=== PATIENT | female | born 1970 | race Caucasian/White ===

== ENCOUNTER 2018-12-02 11:29 | Emergency (ER) | payer SELFPAY ==
[~2018-12-02 11:29] MED LIST: CYCL10TA29 PO; GABA-549 PO; HYDR-317; HYDR-317 PO; LEVO-3 PO; LEVO75TA73 PO
--- NOTE | 2018-12-02 11:38 | ER Report ---
History and Physical Time Seen By MD: 11:37 HPI/ROS CHIEF COMPLAINT: Chest pain. HISTORY OF PRESENT ILLNESS: 48 yo females presents to the ED with c/o constant chest pain for the last two days. Reports pain as sharp, stabbing under her left breast that radiates to under her arm on left side. States that prior to this she had sporadic mild chest pain that she "just blew off." Reports that she was at her PCP today to check TSH levels but d/t chest pain and the EKG performed in office, she was sent to the ED. States that she was sick with a respiratory illness with cough, sore throat and phlegm two weeks ago and that she stopped taking her antibiotics after four days because she felt better and the antibiotics caused GI upset. Reports shortness of breath in cold weather that she contributes to the altitude since she moved here six years ago. She states that she smokes 1 pack of cigarettes per day and drinks up to 12 caffeinated drinks per day since she works nights. Denies fevers, chills, N/V/D, and denies urinary symptoms. REVIEW OF SYSTEMS: Constitutional: No fever, no chills. Eyes: As above. ENT: As above. Cardiovascular: As above. Respiratory: As above. Gastrointestinal: As above. Genitourinary: As above. Musculoskeletal: No back pain. Skin: No rashes. Neurological: No headache. Allergies: Coded Allergies: codeine (Verified Allergy, Intermediate, 12/02/18) Home Meds Reported Medications Levothyroxine Sodium (LEVOTHYROXINE SODIUM) 75 Mcg Tablet, 75 MCG PO QDAY, TAB 08/28/16 Discontinued Reported Medications Gabapentin (GABAPENTIN) 300 Mg Capsule, 2 TAB PO BID, CAPSULE 08/28/16 Past Medical/Surgical History Past medical and surgical history of hypothyroid, seizures, headaches, asthma, left ankle and right shoulder surgery, back pain, hepatitis C, depression, current smoker. Reviewed Nurses Notes: Yes Hx Smoking: Yes (1/2 TO 3/4 PPD SINCE AGE 13YRS.) Smoking Status: Current: Every Day Smoker Hx Substance Use Disorder: No Hx Alcohol Use: No Constitutional Vital Sign - Last 24 Hours 12/02/18 12/02/18 12/02/18 12/02/18 11:35 12:00 13:00 13:30 Temp 97.9 Pulse 78 72 61 59 Resp 18 26 19 B/P (MAP) 136/112 120/84 (96) 114/78 (90) 114/84 (94) Pulse Ox 95 93 93 O2 Delivery Room Air Physical Exam General Appearance: The patient is alert, has no immediate need for airway protection and no signs of toxicity. Eyes: Pupils equal and round no pallor or injection. ENT, Mouth: Mucous membranes are moist. Respiratory: There are no retractions, lungs are clear/diminshed to auscultation. Cardiovascular: Regular rate and rhythm. No murmurs or rubs. Gastrointestinal: Abdomen is soft and non tender, no masses, bowel sounds no rmal. Neurological: A&Ox4; No focal neuro deficits noted. Moving all extremities. Following all commands. Skin: Warm and dry, no rashes. Musculoskeletal: Neck is supple non tender. Extremities are nontender, nonswollen and have full range of motion. DIFFERENTIAL DIAGNOSIS: After history and physical exam differential diagnosis was considered for [place], pneumonia, GERD, anxiety, PE, musculoskeletal pain. Medical Decision Making Data Points Result Diagram: 12/02/18 1143 12/02/18 1143 Laboratory Hematology Test 12/02/18 11:43 Red Blood Count 4.76 M/uL (4.17-5.56) Mean Corpuscular Volume 98.9 fL (80.0-96.0) Mean Corpuscular Hemoglobin 32.8 pg (26.0-33.0) Mean Corpuscular Hemoglobin Concent 33.2 g/dL (32.0-36.0) Red Cell Distribution Width 13.8 % (11.5-14.5) Mean Platelet Volume 7.5 fL (7.2-11.1) Neutrophils (%) (Auto) 60.7 % (39.4-72.5) Lymphocytes (%) (Auto) 25.4 % (17.6-49.6) Monocytes (%) (Auto) 6.3 % (4.1-12.4) Eosinophils (%) (Auto) 6.3 % (0.4-6.7) Basophils (%) (Auto) 1.3 % (0.3-1.4) Nucleated RBC Relative Count (auto) 0.0 /100WBC Neutrophils # (Auto) 5.4 K/uL (2.0-7.4) Lymphocytes # (Auto) 2.3 K/uL (1.3-3.6) Monocytes # (Auto) 0.6 K/uL (0.3-1.0) Eosinophils # (Auto) 0.6 K/uL (0.0-0.5) Basophils # (Auto) 0.1 K/uL (0.0-0.1) Nucleated RBC Absolute Count (auto) 0.00 K/uL Peripheral Blood Smear No Y/N D-Dimer Quantitative (PE/DVT) 0.31 ug/ml (0-0.50) Sodium Level 138 mmol/L (137-145) Potassium Level 4.1 mmol/L (3.5-5.0) Chloride Level 103 mmol/L (98-107) Carbon Dioxide Level 25 mmol/L (22-31) Blood Urea Nitrogen 5 mg/dl (7-18) Creatinine 0.80 mg/dl (0.52-1.04) Glomerular Filtration Rate Calc > 60.0 Random Glucose 151 mg/dl (75-110) Calcium Level 9.0 mg/dl (8.4-10.2) Total Bilirubin 0.4 mg/dl (0.2-1.3) Aspartate Amino Transf (AST/SGOT) 19 U/L (0-35) Alanine Aminotransferase (ALT/SGPT) 13 U/L (0-56) Alkaline Phosphatase 61 U/L (0-126) Troponin I < 0.012 ng/ml Total Protein 7.3 g/dl (6.3-8.2) Albumin 4.4 g/dl (3.5-5.0) Chemistry Test 12/02/18 11:43 White Blood Count 8.9 k/uL (4.5-11.0) Red Blood Count 4.76 M/uL (4.17-5.56) Hemoglobin 15.6 g/dL (12.0-16.0) Hematocrit 47.1 % (34.0-47.0) Mean Corpuscular Volume 98.9 fL (80.0-96.0) Mean Corpuscular Hemoglobin 32.8 pg (26.0-33.0) Mean Corpuscular Hemoglobin Concent 33.2 g/dL (32.0-36.0) Red Cell Distribution Width 13.8 % (11.5-14.5) Platelet Count 372 K/uL (150-450) Mean Platelet Volume 7.5 fL (7.2-11.1) Neutrophils (%) (Auto) 60.7 % (39.4-72.5) Lymphocytes (%) (Auto) 25.4 % (17.6-49.6) Monocytes (%) (Auto) 6.3 % (4.1-12.4) Eosinophils (%) (Auto) 6.3 % (0.4-6.7) Basophils (%) (Auto) 1.3 % (0.3-1.4) Nucleated RBC Relative Count (auto) 0.0 /100WBC Neutrophils # (Auto) 5.4 K/uL (2.0-7.4) Lymphocytes # (Auto) 2.3 K/uL (1.3-3.6) Monocytes # (Auto) 0.6 K/uL (0.3-1.0) Eosinophils # (Auto) 0.6 K/uL (0.0-0.5) Basophils # (Auto) 0.1 K/uL (0.0-0.1) Nucleated RBC Absolute Count (auto) 0.00 K/uL Peripheral Blood Smear No Y/N D-Dimer Quantitative (PE/DVT) 0.31 ug/ml (0-0.50) Glomerular Filtration Rate Calc > 60.0 Calcium Level 9.0 mg/dl (8.4-10.2) Total Bilirubin 0.4 mg/dl (0.2-1.3) Aspartate Amino Transf (AST/SGOT) 19 U/L (0-35) Alanine Aminotransferase (ALT/SGPT) 13 U/L (0-56) Alkaline Phosphatase 61 U/L (0-126) Troponin I < 0.012 ng/ml Total Protein 7.3 g/dl (6.3-8.2) Albumin 4.4 g/dl (3.5-5.0) Coagulation Test 12/02/18 11:43 D-Dimer Quantitative (PE/DVT) 0.31 ug/ml EKG/Imaging EKG Interpretation 12 lead EK:57 Rhythm: Normal sinus rhythm, ventricular rate 69 bpm. [place]: normal QRS: Low voltage QRS. ST segments: No ST elevation or depression identified. No previous EKGs for comparison. Imaging FACILITY: [facility] PATIENT NAME: Trudy Davies : 1970 MR: [id number] V: [id number] EXAM DATE: [id number] ORDERING PHYSICIAN: JOE SAINI TECHNOLOGIST: Location: [facility] Patient: Trudy Davies : 1970 Visit/Account:[id number] Date of Sevice: 12/02/2018 Exam type: CHEST PA LAT History: Chest Pain Comparison: None. Findings: The lungs are free of acute effusions, infiltrates or edema. There is a mild increased AP diameter chest which can be seen with hyperinflation. The two small calcified nodules in the right midlung field likely granulomas. The cardiac silhouette is normal in size. The trachea is in midline. IMPRESSION: 1. Increased AP diameter chest which can be seen with hyperinflation Report Dictated By: Maritza Flores MD at 12/02/2018 12:50 PM Report E-Signed By: Maritza Flores MD at 12/02/2018 12:51 PM WSN:ANNY ED Course/Re-evaluation Clinical Indication for ER IV: IV Access ED Course Patient was admitted to room. History and physical obtained and differential diagnoses were considered. IV started. CBC, CMP and were in defined limits. Troponin and D-Dimer were negative. EKG showed normal sinus rhythm, ventricular rate [address] elevation or depression. Chest xray revealed lungs were free of acute effusions, infiltrates or edema but there is a mild increased AP diameter chest which could be seen with hyperinflation. Toradol administered for pain with improvement in pain. Patient was discharged to home with instructions to follow up with PCP within one week and to consider obtaining a referral to cardiology. She was also encouraged to stop smoking and to cut down on caffeinated beverages. The patient was seen and evaluated by KIM Rossi student, I agree with her assessment and plan, I did evaluate and assess the patient myself. Decision to Disposition Date: Dec 02, 2018 Decision to Disposition Time: 13:28 Depart Departure Latest Vital Signs Vital Signs Date Time Temp Pulse Resp B/P (MAP) Pulse Ox O2 Delivery O2 Flow Rate FiO2 12/02/18 13:30 59 19 114/84 (94) 93 12/02/18 11:35 97.9 Room Air Impression: Primary Impression: Chest pain of uncertain etiology Condition: Improved Disposition: HOME OR SELF-CARE Patient Instructions: Chest Pain (ED), How to Stop Smoking (ED) Additional Instructions: Follow up with primary care provider within one week for re-evaluation. Consider talking to cardiology for evaluation of chest pain. Drink plenty of water, get plenty of rest. Cut down on caffeinated beverages. Take Tylenol or ibuprofen as needed for pain. Consider calling the -800-quit now smoking cessation helpline. Return to the ED for worsening or concerning symptoms. JOE SAINI FIELD REPRESENTATIVES DIRECTOR-BC Dec 02, 2018 11:37
[2018-12-02] MEDS ORDERED: ASPIRIN 81 MG CHEW PO ONE (12:00)
[2018-12-02 12:11] LABS: PLATELET COUNT, AUTOMATED 372 K/uL (150-450)
--- NOTE | 2018-12-02 12:15 | EKG ---
FACILITY: [facility] PATIENT NAME: SUMAYA MACIEL : [id number] MR: [id number] V: [id number] EXAM DATE: ORDERING PHYSICIAN: JOE SAINI TECHNOLOGIST: ROLAN Wilson Reason : CARDIAC Blood Pressure : / mmHG Vent. Rate : 069 BPM Atrial Rate : 069 BPM P-R Int : 192 ms QRS Dur : 074 ms QT Int : 378 ms P-R-T Axes : 076 099 078 degrees QTc Int : 405 ms Normal sinus rhythm Low voltage QRS Septal infarct , age undetermined Abnormal ECG No previous ECGs available Confirmed by CECI SMITH ([id number]) on 12/02/2018 6:13:32 PM Referred By: Confirmed By:CECI SMITH
--- NOTE | 2018-12-02 12:56 | RADIOLOGY IMAGING REPORT ---
FACILITY: [facility] [place] PATIENT NAME: Trudy Davies : 1970 MR: [id number] V: [id number] EXAM DATE: ORDERING PHYSICIAN: JOE SAINI TECHNOLOGIST: Location: [facility] Patient: Trudy Davies : 1970 Visit/Account:[id number] Date of Sevice: 12/02/2018 Exam type: CHEST PA LAT History: Chest Pain Comparison: None. Findings: The lungs are free of acute effusions, infiltrates or edema. There is a mild increased AP diameter c hest which can be seen with hyperinflation. The two small calcified nodules in the right midlung fie ld likely granulomas. The cardiac silhouette is normal in size. The trachea is in midline. IMPRESSION: 1. Increased AP diameter chest which can be seen with hyperinflation Report Dictated By: Maritza Flores MD at 12/02/2018 12:50 PM Report E-Signed By: Maritza Flores MD at 12/02/2018 12:51 PM WSN:[email or web address]
[2018-12-02] MEDS ORDERED: KETOROLAC 30 MG/ML VIAL IVP ONE (13:05)
[2018-12-02 13:30] VITALS: BP 114/84
== END 2018-12-02 13:41 | disposition home or self-care (01) ==
LOC: ER 11:49
DX: R07.9 Chest pain, unspecified (principal); F17.210 Nicotine dependence, cigarettes, uncomplicated
CPT/HCPCS: 71046; 84484; 85025; 85379; 93005; 96374; 99284; J1885; 82040; 82247; 82310; 82374; 82435; 82565; 82947; 84075; 84132; 84155; 84295; 84450; 84460; 84520